=== PATIENT | female | born 1995 | race Two or more races ===

== ENCOUNTER 2019-05-08 13:07 | Inpatient (IN) | payer BC ==
[~2019-05-08] VITALS: Ht 160 cm; Wt 49.9 kg
--- NOTE | 2019-05-08 13:18 | NUR ---
BIB FRIEND C/O NECK AND HEAD PAIN STARTED FRIDAY, FEVER HIGHEST OF 100F. PATIENT A/OX4, BREATHING EVEN AND UNLABORED, NOS OB NOTED, UNABLE TO MOVE NECK AT THIS TIME. CHANGED INTOG OWN, ATTACHED TO THE MICROFILM OPERATOR.
[2019-05-08] MEDS ORDERED: ONDANSETRON HCL/PF 4 MG/2 ML VIAL ONE (13:48)
[2019-05-08] MEDS ORDERED: HYDROMORPHONE 1 MG/1 ML DISP.SYRIN ONE ×2 (13:48→17:17)
[2019-05-08 13:54] LABS: BASOPHILS % (AUTO) 0.5 % (0.0-2.0); EOSINOPHILS % (AUTO) 0.4 % (0.0-6.0); HEMATOCRIT 42 % (33-45); HEMOGLOBIN 14.3 g/dL (11.5-14.8); LYMPHOCYTES # (AUTO) 1.2 /CMM (0.8-4.8); LYMPHOCYTES % (AUTO) 13.1 % (20.0-44.0); MEAN CORPUSCULAR HGB CONC 34 g/dl (31.0-36.0); MEAN CORPUSCULAR VOLUME 91 fL (82-100); MONOCYTES # (AUTO) 0.5 /CMM (0.1-1.30); MONOCYTES % (AUTO) 5.1 % (2.0-12.0); NEUTROPHILS # (AUTO) 7.7 /CMM (1.8-8.9); NEUTROPHILS % (AUTO) 80.9 % (43.0-81.0); PLATELET COUNT (AUTO) 272 /CMM (150-450); RED BLOOD CELL COUNT(AUTO) 4.66 MIL/uL (4.0-5.2); WHITE BLOOD COUNT (AUTO) 9.6 K/uL (4.3-11.0)
[2019-05-08] MEDS ORDERED: ONDANSETRON HCL/PF 4 MG/2 ML VIAL IVP ONE (14:00)
[2019-05-08] MEDS ORDERED: PROCHLORPERAZINE EDISYLATE 10 MG/2 ML VIAL IVP ONE (14:00)
[2019-05-08] MEDS ORDERED: HYDROMORPHONE INJ 2 MG/ML DISP.SYRIN IV ONE (14:00)
[2019-05-08] MEDS ORDERED: KETOROLAC TROMETHAMINE INJ 30 MG/ML VIAL IV ONE (14:00)
[2019-05-08 14:07] LABS: ALBUMIN 4.3 g/dL (3.4-5.0); BILIRUBIN,DIRECT 0.1 mg/dL (0.0-0.2); BILIRUBIN,TOTAL 0.3 mg/dL (0.2-1.0); CALCIUM, SERUM 9.3 mg/dL (8.5-10.1); CREATININE 0.7 mg/dL (0.6-1.3); TOTAL PROTEIN, SERUM 7.9 g/dL (6.4-8.2)
[2019-05-08 14:53] LABS: APPEARANCE,URINE Clear (CLEAR); BILIRUBIN,URINE Negative (NEGATIVE); BLOOD, URINE Negative Ery/uL (NEGATIVE); COLOR,URINE Yellow (YELLOW); KETONES,URINE Negative (NEGATIVE); LEUKOCYTE ESTERASE ,URINE Negative (NEGATIVE); NITRITE, URINE Negative (NEGATIVE); PROTEIN,URINE Negative (NEGATIVE); UGLUCOSE Negative (NEGATIVE); UROBILINOGEN,URINE 0.2 EU/dL (0.2)
[2019-05-08] MEDS ORDERED: FENTANYL PF 100MCG/2ML AMPUL ONE (16:03)
[2019-05-08] MEDS ORDERED: FENTANYL PF 100MCG/2ML AMPUL IV ONE (16:30)
--- NOTE | 2019-05-08 16:47 | NUR ---
AT BEDSIDE FOR LUMBAR PUNCTURE
[2019-05-08] MEDS ORDERED: LORAZEPAM INJ 2 MG/ML VIAL IV ONE (17:00)
[2019-05-08] MEDS ORDERED: HYDROMORPHONE 1 MG/1 ML DISP.SYRIN IV ONE (17:00)
[2019-05-08] MEDS ORDERED: LORAZEPAM INJ 2 MG/ML VIAL ONE (17:17)
--- NOTE | 2019-05-08 17:46 | NUR ---
PATIENT IN SUPINE POSITION. NO DISTRESS NOTED. VITALS STABLE.
[2019-05-08 17:56] LABS: CSF GLUCOSE 62 mg/dL (40-70); CSF PROTEIN 33.8 mg/dL (15-45)
--- NOTE | 2019-05-08 19:34 | NUR ---
endorsed to karla fuentes
--- NOTE | 2019-05-08 20:29 | NUR ---
PATIENT AMBULATORY W/ STEADY GAIT. PATIENT GOT UP TO USE THE RESTROOM. PATIENT STILL HAS STIFF NECK.
--- NOTE | 2019-05-08 21:19 | NUR ---
317-2 [facility] / [facility]
[2019-05-08] MEDS ORDERED: ZOLPIDEM TARTRATE 5 MG TABLET PO PRN (21:30)
[2019-05-08] MEDS ORDERED: ACETAMINOPHEN 325 MG TABLET PO PRN (21:30)
[2019-05-08] MEDS ORDERED: Z GUARD REMEDY 2 OZ OINT TP PRN (21:30)
[2019-05-08] MEDS ORDERED: ONDANSETRON HCL/PF 4 MG/2 ML VIAL IVP PRN (21:30)
[2019-05-08] MEDS ORDERED: ASPIRIN/ACETAMINOPHEN/CAFFEINE 1 EACH TABLET PO PRN (21:30)
[2019-05-08] MEDS ORDERED: ENOXAPARIN SODIUM 40 MG/0.4 ML DISP.SYRIN SQ SCH (21:30)
[2019-05-08] MEDS ORDERED: SUMATRIPTAN SUCCINATE 25 MG TABLET PO ONE (21:30)
[2019-05-08] MEDS ORDERED: diphenhydrAMINE HCL 50 MG/ML VIAL IV ONE (21:30)
[2019-05-08] MEDS ORDERED: MORPHINE SULFATE INJ 10 MG/ML DISP.SYRIN IV SCH (21:30)
[2019-05-08] MEDS ORDERED: MAGNESIUM HYDROXIDE 30 ML UDC PO PRN (21:30)
[2019-05-08] MEDS ORDERED: MAG HYDROX/AL HYDROX/SIMETH 30 ML UDC PO PRN (21:30)
--- NOTE | 2019-05-08 21:39 | NUR ---
REPORT GIVEN TO ADRIANNE HARRY FOR HARRY.
--- NOTE | 2019-05-08 22:15 | NUR ---
RECEIVED PATIENT FROM ED VIA GURNEY IN STABLE CONDITION. PATIENT AWAKE, A/OX4 AND ABLE TO PROVIDE HX. FATHER AT BEDSIDE. PERIPHERAL LINE INTACT AND PATENT. STILL NOTED WITH HEAD AND NECK PAIN. AWAITING MD ORDERS. WILL CONTINUE TO MONITOR
[2019-05-08 23:00] VITALS: BP 99/70
[2019-05-08] MEDS ORDERED: MORPHINE SULFATE INJ 10 MG/ML DISP.SYRIN IV PRN (23:00)
[2019-05-08] MEDS: HYDROCODONE/APAP 5/325MG 1 EACH TABLET PO PRN (23:08)
[2019-05-08] MEDS ORDERED: SUMATRIPTAN SUCCINATE 25 MG TABLET ONE (23:31)
[2019-05-09] MEDS: MORPHINE SULFATE INJ 2 MG/ML DISP.SYRIN IV PRN ×4 (00:49→14:36)
--- NOTE | 2019-05-09 06:54 | NUR ---
MS RN NOTES PATIENT ASLEEP IN BED WITH NO DISTRESS NOTED. CALL LIGHT WITHIN REACH. FATHER AT BEDSIDE. ALL DUE MEDS GIVEN ORDERED WITH NO ASE. NO FURTHER C/O PAIN OR DISCOMFORT. PERIPHERAL LINE INTACT AND PATENT. ROOM FREE OF CLUTTER AND BELONGINGS KEPT NEAR BEDSIDE. BED IN LOW LOCK SETTING. WILL ENDORSE TO ONCOMING SHIFT.
--- NOTE | 2019-05-09 07:55 | NUR ---
M/S RN NOTES PATIENT AWAKE IN BED, FAMILY AT BEDSIDE. PATIENT IN NO RESPIRATORY DISTRESS, C/O OF HEADACHE 10/26, TOLERABLE AT THIS TIME. NO FEVER, NO N/V. PATIENT'S IV ACCESS SITE INTACT AND PATENT. PATIENT'S NEEDS ATTENDED, BED ON LOWEST LOCKED POSITION, CALL LIGHT WITHIN REACH. WILL CONTINUE TO MONITOR.
[2019-05-09 08:00] VITALS: BP 103/58
[2019-05-09 08:21] LABS: BASOPHILS % (AUTO) 0.5 % (0.0-2.0); HEMATOCRIT 41 % (33-45); HEMOGLOBIN 13.7 g/dL (11.5-14.8); LYMPHOCYTES # (AUTO) 2.6 /CMM (0.8-4.8); LYMPHOCYTES % (AUTO) 32.4 % (20.0-44.0); MEAN CORPUSCULAR HGB CONC 33 g/dl (31.0-36.0); MEAN CORPUSCULAR VOLUME 91 fL (82-100); MONOCYTES # (AUTO) 0.5 /CMM (0.1-1.30); MONOCYTES % (AUTO) 6.7 % (2.0-12.0); NEUTROPHILS # (AUTO) 4.7 /CMM (1.8-8.9); NEUTROPHILS % (AUTO) 59.4 % (43.0-81.0); PLATELET COUNT (AUTO) 235 /CMM (150-450); RED BLOOD CELL COUNT(AUTO) 4.51 MIL/uL (4.0-5.2)
[2019-05-09 08:26] LABS: CALCIUM, SERUM 8.6 mg/dL (8.5-10.1); CREATININE 0.7 mg/dL (0.6-1.3); PHOSPHORUS 4.6 mg/dL (2.5-4.9); POTASSIUM 3.9 mmol/L (3.5-5.1)
[2019-05-09] MEDS ORDERED: diphenhydrAMINE HCL 50 MG/ML VIAL IV SCH (09:00)
[2019-05-09] MEDS ORDERED: SUMATRIPTAN SUCCINATE 100 MG TABLET PO ONE (10:00)
[2019-05-09] MEDS ORDERED: LIDOCAINE 1% INJ 50 ML MDV IJ ONE (11:30)
--- NOTE | 2019-05-09 11:40 | NUR ---
M/S RN NOTES DR. GAY AT BEDSIDE OCCIPITAL NERVE BLOCK PROCEDURE. PATIENT TOLERATED PROCEDURE WELL. PATIENT'S NEEDS ATTENDED. WILL CONTINUE TO MONITOR.
--- NOTE | 2019-05-09 15:30 | NUR ---
M/S RN NOTES PATIENT DISCHARGED IN STABLE CONDITION, VSS. PATIENT IN NO RESPIRATORY DISTRESS. STILL C/O PAIN BUT TOLERABLE AT THIS TIME. PATIENT SKIN ASSESSED, NO SKIN BREAKDOWN. IV REMOVED AND APPLIED PRESSURE DRESSING. PATIENT GIVEN DISCHARGE INSTRUCTIONS, VERBALIZED UNDERSTANDING. PATIENT'S BELONGINGS ACCOUNTED FOR AND SIGNED. PATIENT LEFT WITH FAMILY AND LEFT VIA PRIVATE CAR.
[2019-05-09] MEDS: HYDROCODONE/APAP 5/325MG 1 EACH TABLET PO PRN (15:38)
== END 2019-05-09 15:40 | disposition home or self-care (01) | DRG 103 ==
LOC: ER 13:11 → MED 21:34
PROVIDERS: ADMIT Hospitalist
PROC: 009U3ZX Drainage of Spinal Canal, Percutaneous Approach, Diagnostic (ICD-10-PCS; principal; 2019-05-08)
DX: G43.909 Migraine, unspecified, not intractable, without status migrainosus (principal); G47.00 Insomnia, unspecified; Z86.61 Personal history of infections of the central nervous system; Z88.2 Allergy status to sulfonamides
CPT/HCPCS: 36415; 70450-TC; 71045-TC; 80048-TC; 80061-TC; 80076-TC; 81000-TC; 83605-TC; 83735-TC; 84100-TC; 84703-TC; 85025-TC; 85730-TC; 87040-TC; 87070-TC; 87081-TC; 89051-TC; G0378; J1170; J1200; J1650; J2060; J2270; J2405; J3010; J3490